=== PATIENT | male | born 1990 | race Caucasian/White ===

== ENCOUNTER 2023-08-20 16:58 | Inpatient (IN) | payer OTHER, SELFPAY ==
[2023-08-20] VITALS (10 sets, daily range): BP systolic 111–151; BP diastolic 67–94; BMI 27.7; BMI 26.9
[2023-08-20 12:47] LABS: Glucose - Point of Care 89 mg/dl (70-99)
--- NOTE | 2023-08-20 12:54 | ED.CVA ---
History of Present Illness
General
Chief Complaint: CVA/TIA Symptoms
Source: patient
Exam Limitations: none
Time Seen by Provider: 08/20/23 12:52
Onset of Stroke Symptoms
Onset of symptoms known: Yes
Date of onset of symptoms: 08/20/23
Time of onset of symptoms: 11:30
Travel History
Have you had any contact with someone who has COVID-19?: No
Do you have any symptoms of coronavirus? Fever > 100 degrees, chills, cough, shortness of breath, sore throat, loss of taste or smell, muscle aches, or headache?: No
History of Present Illness
History of Present Illness:
33-year-old otherwise healthy male presents from place of employment on his first day on the job with difficulty speaking. His coworker was having conversation with him at 1130 at this time, his speech started to slur. Patient states he has had
trouble getting words out since then. He denies associated headache chest pain or shortness of breath. No unilateral numbness or weakness. No recent fever. He does not take any medications regularly
Phy Exam
Physical Exam
Physical Exam:
General: Well-appearing male no acute respiratory distress
HEENT: Normocephalic atraumatic face is symmetric
Heart: Regular rate and rhythm no murmurs
Lungs: Clear to auscultation bilaterally no wheezing
Neurologic exam: Alert and oriented x 3 no facial asymmetry no drift. Finger-nose [id number] intact. Patient has difficulty getting words out and he occasionally slurred slow speech.
Scores
NIH Stroke Score
Level of Consciousness: 0 - Alert
LOC Questions: 0-Answers both correctly
LOC Commands: 0-Performs both correctly
Best Horizontal Gaze: 0-Normal
Visual Wesley: 0=Normal, no visual loss
Facial Palsy: 0=Normal, symmetrical
Motor - Right Arm: 0=No drift 10 seconds
Motor - Left Arm: 0=No drift 10 seconds
Motor - Right Le-No drift 5 seconds
Motor - Left Le-No drift 5 seconds
Limb Ataxia: 0-Absent
Sensation: 0-Normal
Best Language: 0-No aphasia
Dysarthria: 1-Mild slurring
Extinction and Inattention: 0-No abnormality
Total Score:: 1
Course
Orders/Labs/Results
Orders:
Orders
08/20/23 12:50
Electrocardiogram (*1) Urgent
Reason for Study: Other
Other Reason for Exam: Possible Stroke
Bedside Glucose- Treatment ONCE
Cardiac Monitoring- Treatment ONCE
EKG- Treatment ONCE
IV Insert/Care/Rem.- Treatment PRN
Urinalysis Reflex To Culture Urgent
Date Specimen was Collected: 08/20/23
Time Specimen was Collected: 12:50
Vital Signs As Directed
Frequency: Other
Weight As Directed
Frequency: Once
Comment: ZERO STRETCHER SCALE FOR ACCURATE WEIGHT
O2 Therapy [RESP] Urgent
Titrate/Wean O2 to maintain O2 sat greater than (%): 93
Special Instructions: MAINTAIN CONTINUOUS O2 SATS > OR = 93%
08/20/23 12:52
Complete Blood Count/With Diff Urgent
Comprehensive Metabolic Panel Urgent
PTT Urgent
Prothrombin Time Urgent
Troponin I Urgent
08/20/23 12:55
CT Head W/o Cont STROKE ALERT Stat
Comment:
Reason For Exam: expressive aphasia
08/20/23 12:56
CT Head/Neck Ang STROKE ALERT Urgent
Comment:
Reason For Exam: slurred speech
08/20/23 13:37
MRI Brain [MR Brain Without Contrast] Urgent
Comment:
Reason For Exam: slurred speech
Recent pill cam endoscopy?: No
08/20/23 15:22
Aspirin 325 mg PO NOW STA
Clopidogrel Bisulfate [Plavix] 300 mg PO NOW STA
NIH Stroke Scale As Directed
Directions: Per protocol
Neurological Checks As Directed
Frequency: Per unit guidelines
08/20/23 15:24
Occupational Therapy Consult [Ot Eval And Treat] Routine
Physical Therapy Consult [Pt Eval And Treat] Routine
Activity Level: Ambulate
Speech Therapy Eval & Treat Routine
08/20/23 15:25
Echo 2D MMode Color/Doppler Routine
Reason for Study: Stroke source, bubble study please young age stroke
Comment: Bubble study please
Echo 2D MMode Color/Doppler Routine
Reason for Study: Thrombotic source for stroke-like sxs
08/20/23 15:30
Folate IN AM
Vitamin B12 IN AM
08/21/23 06:00
MASTER, IgG Reflex to HEp-2 [S] IN AM
Antiphospholipid Antibody [Phospholipid Antibody Panel] IN AM
CRP [C-Reactive Protein] IN AM
Cardiovascular Evaluation IN AM
Erythrocyte Sed Rate IN AM
Glycohemoglobin (HgbA1c) IN AM
TSH Reflex To Free T4 IN AM
08/21/23 08:00
Aspirin Low Dose EC [Aspir Low (Enteric Coated)] 81 mg PO DAILY
Clopidogrel Bisulfate [Plavix] 75 mg PO DAILY
Abnormal Lab Results
08/20/23
12:52
Absolute Monos (auto) 0.7 H 10^3/uL
(0.1-0.6)
BUN 23 H mg/dl
(9-20)
Glucose 102 H mg/dl
(70-99)
Total Bilirubin 2.3 H mg/dl
(0.2-1.3)
Albumin 5.1 H g/dl
(3.5-5.0)
08/20/23 12:52
08/20/23 12:52
Vital Signs
Initial and Last Documented VS:
Initial Vital Signs
Temp Pulse Resp BP Pulse Ox
97.8 F 101 16 146/86 100
08/20/23 12:33 08/20/23 12:33 08/20/23 12:33 08/20/23 12:33 08/20/23 12:33
Last Documented Vital Signs
Temp Pulse Resp BP Pulse Ox
97.8 F 94 23 112/88 97
08/20/23 12:33 08/20/23 14:30 08/20/23 14:30 08/20/23 14:22 08/20/23 14:30
MDM/Problems Addressed
Differential Diagnosis Includes:
Abrupt onset of slurred speech. Differential could include CVA versus hypertensive encephalopathy versus hypoglycemia
Patient evaluated under stroke alert. Stroke alert was called through triage. Patient has slurred speech with an NIH of 1 but does involve his speech. Patient taken to CAT scan and neurology into see him in CAT scan room. Per neurology's
request, CTA of the head and neck were ordered as well
*Critical Care Note
Total Time (30-74mins, 75-104mins- exclusive of procedures): Not Applicable
Update Note
Update Note:
Patient evaluated immediately upon arrival to the room after stroke alert called through triage. Neurology into see patient as well. CT of head and CT angio of head and neck were ordered which were both negative. Will order MRI of brain per
neurology's request. EKG shows sinus tachycardia with rate of 103 no ischemic changes
MRI of the brain does demonstrate hyperacute 2.3 cm area of ischemic stroke in the left side. Consistent with the patient's symptoms. Neurology already aware of findings. Aspirin and Plavix were ordered. Will admit to hospital for further stroke
workup
ED Attending Note
-
Portions of this chart may have been created with voice recognition software.� Occasional wrong word or��sound alike� substitutions may have occurred due to the inherent limitations of voice recognition software.
Discharge Plan
Departure
Patient Disposition: Admit
Date of Disposition: 08/20/23
Time of Disposition: 15:39
Admit to: Telemetry
Presentation/result/management discussed w/ accepting MD/DO: Hospitalist
Discharge Problem:
Acute CVA (cerebrovascular accident)
Referrals:
NONE,* [Family Provider] -
Interventions
Interventions:
*Risk Screen - Suicide Last Done: 08/20/23 12:34
*General Assessment Last Done: 08/20/23 12:34
*Neglect/Abuse Screening Last Done: 08/20/23 12:34
ED- Pulmonary Assessment Last Done: 08/20/23 14:03
ED- Neurological Assessment Last Done: 08/20/23 12:47
ED- Cardiac Assessment Last Done: 08/20/23 14:03
ED Swallowing Screen Last Done: 08/20/23 13:00
[2023-08-20 13:01] LABS: % Basophils 0.7 % (0-2); % Eosinophils 0.7 % (0-6); % Immature Granulocytes 0.3 % (0-0.5); % Monocytes 8.2 % (1.7-9.3); % Neutrophils 65.1 % (42.2-75.2); Absolute Basophils 0.1 10^3/uL (0-0.2); Absolute Eosinophils 0.1 10^3/uL (0-0.7); Absolute Lymphocytes 2.2 10^3/uL (1.2-3.4); Absolute Monocytes 0.7 10^3/uL (0.1-0.6); Absolute Neutrophils 5.6 10^3/uL (1.4-6.5); Hematocrit 43.9 % (39.0-52.0); Hemoglobin 15.8 g/dL (13.0-18.0); Mean Corpuscular Hgb 30.9 pg (27.0-31.0); Mean Corpuscular Volume 85.7 fL (80.0-94.0); Mean Platelet Volume 9.6 fL (7.4-10.4); Nucleated Red Blood Cells % 0 % (-); Platelet Count 329 10^3/uL (130-400); Red Blood Cell Count 5.12 10^6/uL (4.70-6.10); Red Cell Dist. Width 11.7 % (11.5-14.5); White Blood Cell Count 8.6 10^3/uL (4.8-10.8)
--- NOTE | 2023-08-20 13:02 | CON.NEURO4 ---
Addendum entered and electronically signed by Praveen Montano MD 08/20/23 15:28:
Brain MRI without contrast reviewed there is an acute infarction in the left temporal lobe which does explain the patient's presenting symptoms of minor aphasia.
Will need admission and stroke workup
Recommendations
-Permissive hypertension goal less than 220/120 until 10 AM tomorrow
-Give aspirin 325 mg and Plavix 300 mg once now, continue on DAPT therapy thereafter
-Monitor on cardiac telemetry and check transthoracic echocardiogram with bubble given young age, strong consideration for JACQUELINE
-Check hemoglobin A1c and lipid panel, vitamin B12, folate and TSH
-Check ESR, CRP, MASTER, antiphospholipid antibody panel
-Speech physical and occupational therapy evaluations
-Neurologic checks NIH stroke scales
Original Note:
Consultation - Neurology 4
-
CONSULTING PHYSICIAN: Rigoberto Montano
REFERRING PHYSICIAN: ER
DICTATED BY: Rigoberto Montano
DATE/TIME OF REQUEST: 08/20/23
DATE/TIME OF CONSULTATION: 08/20/23
Reason for Consultation: Speech difficulty
History of Present Illness:
Patient is a right-handed 33-year-old male with a past medical history of hyperlipidemia presented to hospital because of sudden onset of speech abnormality starting at work around 11 AM today. Patient has been in his normal state of health
recently with no recent illnesses, denies some headaches but nothing that has been unusual or severe. No recent head or neck trauma. He does not take any chronic medications.
Patient was starting new job today and did feel somewhat anxious which he says he generally hides well, around 11 AM was noticed by himself as well as coworkers he had significant expressive speech difficulty that led him to come to ER. Patient
reports that the speech issues have improved some but are not normal currently. He reports that he did have speech impediment with some stuttering and did speech classes as a child in grade school age but this seemed to have been long ago resolved.
Patient had had elevated cholesterol levels around 1-1/2 years ago, his primary care physician had recommended strongly to him that he needed to start exercising and eating better and he did do this losing around 30 pounds and having significant
improvement in his cholesterol levels, had started a statin medication for a brief amount of time but has been able to come off of this with his lifestyle habit changes.
Past Medical History: Hyperlipidemia
Surgical History: None
Family History: Father had had a history of cancer of the brain, no history of early stroke or [place]
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
Allergies: No known drug allergies
Review of Symptoms:
Patient denies any fever, headache, chest pain, shortness of breath, GI or symptoms.
Physical Exam:
Well-appearing young middle-age man appears his stated age well-groomed well-nourished no signs of head or neck trauma, wrestler's ear moer on the right side, neck with no masses oropharynx is clear, eyes are clear, heart rate regular, breathing
unlabored abdomen soft nontender no lower extremity edema rash or joint deformity
Neurologic Examination:
Patient is awake and fully oriented conversational and answers all questions appropriately good insight and good historian, mildly anxious and pleasant. Patient has some occasional instances of disfluent speech with stuttering, he does not
demonstrate any difficulty in naming simple objects or repeating phrases, obeys complex and multistep commands. On cranial nerve assessment, pupils are 3 mm bilateral, round and reactive to light and accommodation. Visual allen are full.
Extraocular movements are intact. Facial sensations are intact and bilaterally symmetrical, there is no facial asymmetry. Hearing is intact bilaterally to normal conversation volume. Tongue palate and uvula are midline. Sternocleidomastoid
strengths are full bilaterally. Motor strengths are 5/5 bilateral upper and lower extremities on medical research Solomon scale. There is no drift or involuntary movement noted. Deep tendon reflexes are 2+ bilateral upper and lower extremities and
Babinski is absent bilaterally. Sensations of pain, touch, temperature and vibration are intact and bilaterally symmetrical. There was no extinction noted on double simultaneous stimulation. Coordination is intact by finger to nose bilaterally.
Walks independently with no difficulty, hops on one foot easily, Rhomberg negative.
Neuro Imaging:
CT head noncontrast with no acute abnormalities no masses or edema no acute infarct is seen no hemorrhages no mass effect or edema no hydrocephalus.
CTA of the head and neck with no dissection in the carotid vertebral circulations, no significant carotid stenosis, no intracranial occlusions or stenosis no vascular malformations are seen
Impressions
1. Suspect reemergence of previous stutter associated with stressors of new job. Small possibility of minor ischemic stroke to the left hemisphere that would require MRI of the brain to evaluate for.
2. History of hyperlipidemia which greatly improved with diet and exercise lifestyle modifications
3. Distant history of speech impediment and stuttering in his grade school childhood years
IV Tenecteplase/IAT candidacy: Patient within time window for TNK however patient described history of previous stuttering in his younger years and started new job today, his exam is more consistent with stuttering with nervousness and stress of
the new job, is felt unlikely this is an ischemic stroke but even if this were the case the deficit is mild enough that risks of TNK outweigh the benefits, no large vessel occlusion on CTA head and neck would not be candidate for IAT.
Recommendations:
1. Check MRI of the brain without contrast
2. If no findings of acute infarct then would be acceptable for discharge home with reassurance that symptoms are expected to improve quickly, consideration for speech therapy in outpatient setting
3. If MRI brain demonstrates stroke will need starting of antiplatelet therapy and thorough stroke workup
Discussed patient care with: Patient, ED
[2023-08-20 13:12] LABS: APTT 26.6 Sec (23.4-35.0); INR 0.99; PT 12.9 Sec (11.4-14.6)
[2023-08-20 13:17] LABS: ALT (SGPT) 24 U/L (0-50); AST (SGOT) 25 U/L (17-59); Albumin 5.1 g/dl (3.5-5.0); Alkaline Phosphatase 56 U/L (38-126); Blood Urea Nitrogen 23 mg/dl (9-20); Calcium 9.8 mg/dl (8.4-10.2); Carbon Dioxide 27 mmol/L (22-30); Chloride 99 mmol/L (98-107); Estimated Creatinine Clearance 95 ml/min; Glucose 102 mg/dl (70-99); Potassium 3.8 mmol/L (3.5-5.1); Sodium 140 mmol/L (135-145); Total Bilirubin 2.3 mg/dl (0.2-1.3); eGFR > 60.00
[2023-08-20 14:24] LABS: Troponin I < 0.012 ng/ml
[2023-08-20] MEDS: PLAVIX 300 MG PO (16:07)
[2023-08-20] MEDS: ASPIRIN 325 MG PO (16:07)
--- NOTE | 2023-08-20 16:28 | HPS.HSE ---
Family Physician
-
Family Physician: * NONE
Chief Complaint
-
Speech abnormality
History of Present Illness
Patient is 33 years old male with no significant medical history other than hypercholesterolemia who presents to the emergency room after acute episode of aphasia. History was taken from patient himself as well as from coworker who is at the
bedside. Starting first day with new job today patient was found to have difficulty of finding words along with anxiety all happened at around 11 AM this morning coworker describes significant expressive aphasia that led him to emergency room.
Patient denies any loss of consciousness, headache, denies any loss of vision, upper or lower extremity motor or sensory abnormalities. Patient mentioned mild speech impediment at the childhood which improved with age.
In addition patient with history of high cholesterol which treated with diet and exercise. Patient lost over 30 pounds over the last year and a half and with improved cholesterol discontinued statin medication. Patient denies any prior history of
CAD, CVA, seizures. He denies any history of hypercoagulable state and has negative relevant family history.
While in the emergency room patient was seen by neurology his physical exam including neurologic exam showed no focal findings.
Additional workup with CT scan of the head showed no acute abnormalities.
Following MRI of the brain showed right-sided small infarct in left temporal lobe.
At the time of my examination patient has no focal findings other than very mild right facial droop. He has normal speech.
Patient has been loaded with aspirin and Plavix and being admitted for further CVA evaluation.
Medical History
Past Medical History
Past Medical History: Reports Hypercholesterolemia; Denies Arrhythmia, CAD, Cancer or IDDM
Past Surgical History: Reports None
Social History
Tobacco: Non-smoker
Alcohol: None
Drug: None
Living: With Family
Employment: Employed
Family History
Family History: Not pertinent
Allergies / Home Medications
Allergies reflects when Allergies were last updated in [facility].
Home Medications with original date entered in [facility]
Allergy/Medication List:
Allergies
Allergy/AdvReac Type Severity Reaction Status Date / Time
No Known Allergies Allergy Verified 08/20/23 12:51
Home Medications
Protein Powder Supplement 1 dose PO .SEE BELOW 08/20/23
Review of Systems
-
A 12 point ROS was completed and negative except as noted: Yes
Cardiac: Reports See HPI
Neurological: Reports See HPI
Physical Exam
Vital Signs
Vital Signs
Temp Pulse Resp BP Pulse Ox
97.8 F 82 12 121/72 98
08/20/23 12:33 08/20/23 16:01 08/20/23 16:01 08/20/23 16:01 08/20/23 16:01
Physical Exam
General: Well Developed, Well Nourished and No Apparent Distress
HEENT: NormoCephalic, Moist mucous membranes and Atraumatic
Respiratory: Clear
Cardiac: S1/S2 and Regular Rhythm; No Murmur or Rub
GI: Soft, Non Tender, Non Distended and Normal Bowel Sounds; No Organomegaly
Rectal: Deferred by Provider
Musculoskeletal: No Clubbing, No Cyanosis and No Edema
Skin: No Rash
Neuro: Awake, Alert, Oriented, AO x 3, No Motor Deficits, Nonfocal/grossly intact, Cranial Nerves Intact and Facial Droop (Very mild right)
Psych: Calm
Laboratory Results
-
08/20/23 12:52
08/20/23 12:52
Laboratory Results
PT 12.9 Sec (11.4-14.6) 08/20/23 12:52
INR 0.99 08/20/23 12:52
APTT 26.6 Sec (23.4-35.0) 08/20/23 12:52
Total Bilirubin 2.3 mg/dl (0.2-1.3) H 08/20/23 12:52
AST 25 U/L (17-59) 08/20/23 12:52
ALT 24 U/L (0-50) 08/20/23 12:52
Alkaline Phosphatase 56 U/L (38-126) 08/20/23 12:52
Troponin I < 0.012 ng/ml 08/20/23 12:52
Data Reviewed
-
CT Scan: Report Reviewed by me
MRI: Report Reviewed by me
Lab Data: Labs Reviewed by me
Impression/Plan
-
IMPRESSION:
Acute left temporal lobe CVA
� Presentation with expressive aphasia shortly resolved.
Dyslipidemia discontinued statins after weight loss.
PLAN:
Presentation with expressive aphasia, self-limited episode
Acute left temporal lobe CVA.
History of dyslipidemia currently not on statins, had been discontinued after weight loss.
CT scan of the head with no acute abnormalities
CTA head and neck with no vascular abnormalities
MRI of the brain without contrast showed acute infarction in the left temporal lobe which consistent with patient presentation.
Current neurologic status is stable with resolution of the symptoms except very mild right facial droop (unclear if chronic)
Patient was not a candidate for lytic treatment given rapid improvement of neurologic symptoms and risk of complications overweight benefits.
Normotensive.
Admit for further close monitoring and CVA evaluation.
Loaded with full dose of aspirin 325 mg and Plavix 300 mg while in the emergency room.
Continue close neurologic monitoring with serial neurochecks per
Check hemoglobin A1c, lipid profile, B12 and TSH level.
Check inflammatory markers including ESR, CRP.
Serologic workup with MASTER and antiphospholipid antibody.
Speech and swallow evaluation.
Echocardiogram with bubble study
Monitor blood pressure trend with goal of permissive hypertension over the next 24 hours.
[2023-08-20 18:23] LABS: Urine Albumin Negative (Neg - Trace); Urine Bilirubin Negative (Negative); Urine Character Clear (Clear); Urine Color Yellow; Urine Glucose Negative (Negative); Urine Ketone Negative (Negative); Urine Leukocyte Negative (Negative); Urine Nitrite Negative (Negative); Urine Occult Blood Negative (Negative); Urine Urobilinogen Negative (Neg - 1+); Urine pH 6.5 (5.0-9.0)
[2023-08-20 18:34] LABS: Amphetamines Negative (Negative); Barbiturates Negative (Negative); Benzodiazepines Negative (Negative); Buprenorphine Negative (Negative); Cocaine Negative (Negative); Marijuana Negative (Negative); Methadone Negative (Negative); Methamphetamines Negative (Negative); Opiates Negative (Negative); Phencyclidine Negative (Negative); Tricyclic Antidepressants Negative (Negative)
[2023-08-20 19:02] LABS: Folate 9.3 ng/ml (2.76-20); Vitamin B12 233 pg/ml (239-931)
[2023-08-20] MEDS: LOVENOX 40 MG SC (19:19)
[2023-08-21] VITALS (7 sets, daily range): BP systolic 110–133; BP diastolic 60–78; PULSE 76; O2SAT 98–99
--- NOTE | 2023-08-21 01:29 | PTCARENOTE ---
Pt arrived to unit from ED via stretcher. Pt. able to safely ambulate into room 338-2 on . NIH 0. Pt. AAOx3 and able to make needs known. Tele monitor placed per orders. Oriented to unit. Call [facility] within reach. Plan of care on going.
[2023-08-21 06:04] LABS: HDL Cholesterol 40 mg/dl; LDL Cholesterol, Calculated 107 mg/dl; Total Cholesterol 160 mg/dl (50-199); Triglyceride 65 mg/dl (10-149); Very Low Density Lipoprotein 13 mg/dl (0-30)
[2023-08-21 06:05] LABS: C-Reactive Protein < 5.00 mg/L (0.0-10.00)
[2023-08-21 06:35] LABS: TSH Reflex To Free T4 2.14 uIU/ml (0.47-4.68)
[2023-08-21 07:16] LABS: Erythrocyte Sed Rate 2 mm/hour (0-20)
[2023-08-21] MEDS: PLAVIX PO (07:51)
[2023-08-21] MEDS: ASPIR LOW (ENTERIC COATED) 81 MG PO (07:51)
[2023-08-21] MEDS: PLAVIX 75 MG PO (08:36)
[2023-08-21 08:56] LABS: Glycohemoglobin (HgbA1c) 5.2 % (4.0-5.6)
[2023-08-21] MEDS: VITAMIN B-12 1000 MCG PO (10:12)
[2023-08-21] MEDS: OMNIPAQUE 50 ML PO (11:40)
--- NOTE | 2023-08-21 12:45 | W.PN.HOSP.TC ---
Addendum entered and electronically signed by Avery Snowden MD 08/21/23 16:45:
Patient seen and examined
Discussed with neurology
Discussed with resident
Impression/plan:
Acute left temporal CVA.
Neurologically stable with no sequela since admission
Ongoing workup so far unrevealing including CT scan of the chest abdomen pelvis negative for occult malignancy.
Lower extremity Doppler negative for DVT.
2D echocardiogram with bubble study and JACQUELINE has been scheduled.
Cardiology consultation for outpatient cardiac monitoring.
Continue DAPT with aspirin and Plavix
Initiated on high-dose of statin.
Original Note:
Today's Communication/Plan
-
Hypercoagulable workup as outpatient.
Continue Statin for secondary prevention
Echo pending
JACQUELINE
Assessment / Plan
Assessment / Plan
IMPRESSION:
Acute left temporal lobe CVA
� Presentation with expressive aphasia shortly resolved.
Dyslipidemia discontinued statins after weight loss.
PLAN:
Presentation with expressive aphasia, self-limited episode
Acute left temporal lobe CVA.
History of dyslipidemia currently not on statins, had been discontinued after weight loss.
CT scan of the head with no acute abnormalities
CTA head and neck with no vascular abnormalities
MRI of the brain without contrast showed acute infarction in the left temporal lobe which consistent with patient presentation.
Current neurologic status is stable with resolution of the symptoms except very mild right facial droop (unclear if chronic)
Patient was not a candidate for lytic treatment given rapid improvement of neurologic symptoms and risk of complications overweight benefits.
Normotensive.
Admit for further close monitoring and CVA evaluation.
Loaded with full dose of aspirin 325 mg and Plavix 300 mg while in the emergency room.
Continue close neurologic monitoring with serial neurochecks per
Check hemoglobin A1c, lipid profile, B12 and TSH level.
Check inflammatory markers including ESR, CRP.
Serologic workup with MASTER and antiphospholipid antibody.
Speech and swallow evaluation.
Echocardiogram with bubble study
Monitor blood pressure trend with goal of permissive hypertension over the next 24 hours.
Anticipated Discharge: 24 - 48 hours
Subjective/Interval History
-
Date of Service: August 21, 2023
Objective Data
-
Vital Signs:
Vital Signs
Temp Pulse Resp BP Pulse Ox
98.6 F 70 17 117/68 98
08/21/23 11:16 08/21/23 11:16 08/21/23 11:16 08/21/23 11:16 08/21/23 11:16
I&O
08/20/23 08/21/23 08/22/23
06:59 06:59 06:59
Intake Total 480 / 480
Balance 480 / 480
Review of Systems
-
History Source: Patient
All other systems: Reviewed and negative
Physical Exam
-
General: Well Developed and No Apparent Distress
HEENT: Normocephalic, Atraumatic and Moist Mucous Membranes
Respiratory: Clear to Auscultation
Cardiac: Regular Rhythm and S1/S2; Negative Murmur, Rub or Gallop
GI: Soft, Nontender, Nondistended and Normal Bowel Sounds; Negative Organomegaly
Rectal: Deferred by Provider
Musculoskeletal: No Clubbing, No Cyanosis and No Edema
Skin: Negative Rash
Neuro: Nonfocal/Grossly Intact
--- NOTE | 2023-08-21 13:47 | PTOTSP ---
SPEECH THERAPY SPEECH/LANGUAGE/COGNITIVE COMMUNICATION EVALUATION:
Patient present with speech, language, and cognitive communication skills WFL. Patient appears to be back at baseline level of functioning. Patient endorses no residual language/speech impairments at this time; reported aphasia resolved 3 hours
after onset. Speech therapy is not indicated at this time. ST to sign off.
RECOMMEND:
1) Speech therapy is not indicated at this time. ST to sign off.
--- NOTE | 2023-08-21 14:48 | CON.CAR ---
Addendum entered and electronically signed by Robert Story DO 08/21/23 16:37:
I saw and examined the patient.
The Operations Recruiter's note was reviewed and I agree with the note.
Comment:
Plan:
Check echo
Check JACQUELINE AM
Hypercoag work up in progress
Check lipids and would tx cardiovascular and cerebrovascular risk factors.
4 week monitor and if that is negative would recommend implantable loop recorder, pt is considering.
Original Note:
Consultation
Consultation Request
Date/Time Consultation Performed: 08/21/23
Requesting Provider: Dr. Snowden
Performing Provider: Lanny Lorenzo PA-C for Dr. Story
Reason for Consultation: CVA
Medical History
-
Chief Complaint: speech difficulty
History of Present Illness:
Patient is a 33 year old male with PMH of HLD who presented to for evaluation of speech difficulty. He had started a new job and around 11AM yesterday was noted by coworkers and by patient to have difficulty with speech. Head CT was without acute
abnormality however brain MRI showed L frontal CVA. Cardiology consulted for evaluation for JACQUELINE and cardiac monitoring in setting of CVA of unclear etiology. No recent complaints of palpitations, lightheadedness. No recent illnesses or trauma. No
medication changes. No history of clotting issues. Patient does use protein powder. Bloodwork completed through PCP was noted to have elevated cholesterol levels and patient has lost approximately 40 pounds in the last year through lifestyle
modifications per . Reportedly speech back to baseline.
PMH:
HLD, improved with lifestyle modification
Past Medical History
Past Medical History: Other (in HPI)
Social History
Tobacco: Non-Smoker
Alcohol: Occasional
Personal:
Living: With Family
Employment: Employed
Family History
Family History: Cancer
Allergies / Home Medications
Allergy/AdvReac Type Severity Reaction Status Date / Time
No Known Allergies Allergy Verified 08/20/23 12:51
Medication Instructions Recorded Confirmed Type
Protein Powder Supplement 1 dose PO .SEE BELOW 08/20/23 08/20/23 History
Review of Systems
-
History Source: Family
All other systems: Negative unless noted
Physical Exam
Vital Signs
Temp Pulse Resp BP Pulse Ox
98.6 F 70 17 117/68 98
08/21/23 11:16 08/21/23 11:16 08/21/23 11:16 08/21/23 11:16 08/21/23 11:16
Lab Results
08/20/23 12:52
08/20/23 12:52
Troponin I < 0.012 ng/ml 08/20/23 12:52
Impression / Plan
-
Primary Radio Television Technical Director: none prior to admission
Assessment:
Presentation with speech difficulty, resolved
Acute L frontal CVA by brain MRI
HLD, improved with lifestyle modification
Vitamin B12 deficiency
ECHO 08/21/23: pending
Plan:
-work up/treatment of L CVA per neurology
-currently on DAPT with asa, plavix
-LDL 107. high intensity statin therapy
-echo pending
-JACQUELINE procedure discussed with at bedside. will make NPO for AM
-in SR upon review of tele. will plan for 4 week monitor to be placed prior to DC. pending results, would consider for linq implant
-will arrange OP cardiac follow up
Data Reviewed
-
EKG: Tracing Personally Visualized and interpreted
CT Scan: Report Reviewed by me
MRI: Report Reviewed by me
Labs: Labs Reviewed by me
Old Records: Reviewed
--- NOTE | 2023-08-21 16:03 | W.PN.NEURO.1 ---
Today's Communication / Plan
-
As outpatient check hypercoagulability labs
As inpatient check echocardiogram, JACQUELINE
Would ask for cardiology consultation for consideration of implantable air sampling and monitoring to better discern if dysrhythmia was the cause for symptomatology
Initiate atorvastatin due to minimally elevated LDL
Provide medical educational materials
Goal of normotension
Goal of normoglycemia
Continue dual antiplatelet therapy with eventual goal of aspirin alone after 21 days of therapy
Neuro Assessment/Plan
Assessment
Acute onset of aphasia in the form of stuttering, completely resolved
With MRI of brain findings suggestive of left temporal horn acute ischemic stroke
Plan
As outpatient check hypercoagulability labs
As inpatient check echocardiogram, JACQUELINE
Would ask for cardiology consultation for consideration of implantable air sampling and monitoring to better discern if dysrhythmia was the cause for symptomatology
Initiate atorvastatin due to minimally elevated LDL
Provide medical educational materials
Goal of normotension
Goal of normoglycemia
Continue dual antiplatelet therapy with eventual goal of aspirin alone after 21 days of therapy
We will continue to follow
Subjective/Objective
Subjective Data
Date of Service: August 21, 2023
Resolution of symptoms since 1500 yesterday
Objective Data
Vital Signs
Temp Pulse Resp BP Pulse Ox
36.7 C 73 18 120/70 97
08/21/23 15:00 08/21/23 15:00 08/21/23 15:00 08/21/23 15:00 08/21/23 15:00
Lab Results
08/20/23 12:52
08/20/23 12:52
PT 12.9 Sec (11.4-14.6) 08/20/23 12:52
INR 0.99 08/20/23 12:52
APTT 26.6 Sec (23.4-35.0) 08/20/23 12:52
Sodium 140 mmol/L (135-145) 08/20/23 12:52
Potassium 3.8 mmol/L (3.5-5.1) 08/20/23 12:52
BUN 23 mg/dl (9-20) H 08/20/23 12:52
Glucose 102 mg/dl (70-99) H 08/20/23 12:52
Calcium 9.8 mg/dl (8.4-10.2) 08/20/23 12:52
LDL Cholesterol, Calc 107 mg/dl 08/21/23 05:14
Vitamin B12 233 pg/ml (239-931) L 08/20/23 15:30
Ur Buprenorphine Negative (Negative) 08/20/23 18:14
Patient Allergies
No Known Allergies Allergy (Verified 08/20/23 12:51)
Review of Systems
-
History Source: Patient
All other systems: Reviewed and negative
Physical Exam
-
General: No Apparent Distress and Appears Stated Age
Eyes: Round OU, [place]den Conjunctivae and No Ptosis
HEENT: Anicteric and Moist Mucous Membranes
Neck: Full Range of Motion
Respiratory: No Dyspnea
Cardiac: No JVD
GI: Soft
Skin: Unremarkable
Extremities: No Clubbing, No Cyanosis and No Edema
Psych: Intact Judgement/Insight
Extended Neurological Exam
Mood & Affect: Mood Unremarkable and Affect Unremarkable
Attention Span & Concentration: Awake, Alert, Interactive and No Difficulty with 2 Step Request
Memory: Unremarkable
Tremor: Hand Tremor Absent and Head Tremor Absent
Involuntary Movement: None
Speech: Quality Unremarkable and Quantity Unremarkable
Cranial Nerve II: Left Eye: Pupillary Size Unremarkable and Visual Wesley Grossly Intact
Cranial Nerve II: Right Eye: Pupillary Size Unremarkable and Visual Wesley Grossly Intact
Cranial Nerves III, IV, : Extraocular Movement: Grossly Intact
Cranial Nerve VII: Facial Symmetry: Normal Facial Symmetry
Cranial Nerve VIII: Hearing: Unremarkable Hearing to Normal Conversational Volume
Cranial Nerve XI: Shoulder Shrug: Unremarkable
Muscle Bulk & Tone: Bulk Unremarkable and Tone Unremarkable
Touch Sensation: Unremarkable
Coordination: Reaches for Objects without Difficulty
Gait & Station: Up from Seated Without Problem
Data Reviewed
-
Labs: Report Reviewed
Reviewed with: Physician, Nurse Practioner, Patient and Family
Old Records: Summarized
Past History
Past History
ED Past Medical History: CVA (left temporal stroke )
ED Past Surgical History: None
Medications
-
Medications:
Generic Name Dose Route Start Last Admin
Trade Name Freq PRN Reason Stop Dose Admin
Aspirin 81 mg 08/21/23 08:00 08/21/23 07:51
Aspirin 81 Mg (Enteric Coated) Tablet PO 09/18/23 07:59 81 mg
DAILY CEE Administration
Atorvastatin Calcium 80 mg 08/21/23 18:00
Atorvastatin (Lipitor) 80 Mg Tablet PO 09/18/23 17:59
QPM CEE
Clopidogrel Bisulfate 75 mg 08/21/23 08:00 08/21/23 08:36
Clopidogrel 75 Mg Tablet PO 09/10/23 08:01 75 mg
DAILY CEE Administration
Cyanocobalamin 1,000 mcg 08/21/23 09:00 08/21/23 10:12
Cyanocobalamin 1,000 Mcg Tablet PO 09/18/23 08:59 1,000 mcg
DAILY CEE Administration
Enoxaparin Sodium 40 mg 08/20/23 18:03 08/20/23 19:19
Enoxaparin Sodium 40 Mg/0.4 Ml Syringe SC 09/17/23 18:02 40 mg
QPM CEE Administration
Sodium Chloride 0 flush 08/20/23 19:00
Sodium Chloride 0.9% (Flush) Syringe IV 09/17/23 18:59
PER PROTOCOL CEE
[2023-08-21] MEDS: LIPITOR 80 MG PO (17:21)
[2023-08-21] MEDS: LOVENOX 40 MG SC (17:21)
--- NOTE | 2023-08-21 17:22 | CM ---
Alert awake oriented patient who lives with his Shahnaz who lives in a 2 story home with 4 step to enter and 12 steps to bed and bathroom . He is independent in driving and in all activities of daily living.He was offered VN he declined
need.Spoke with also.
No VN/SNF history
Ph[facility]acy [facility]
PCP DR Norma Newsome
PLAN Home Declined VN
[2023-08-22 03:45] VITALS: BP 116/65
[2023-08-22 07:00] VITALS: BP 126/71
[2023-08-22] MEDS: PLAVIX 75 MG PO (10:57)
[2023-08-22] MEDS: ASPIR LOW (ENTERIC COATED) 81 MG PO (10:57)
[2023-08-22] MEDS: VITAMIN B-12 1000 MCG PO (10:57)
[2023-08-22 11:48] VITALS: BP 107/70
--- NOTE | 2023-08-22 12:41 | W.DS.TRANS ---
DC Summary - [employer]
-
Discharge Instructions:
Discharge Diagnosis/Procedures CVA
Diet Low Cholesterol
Others Tests 30 day front desk monitor
Instructions:
Stand-Alone Forms:
Changes to Home Medications: Yes
Discharge Medications:
DC Medications w/original date entered in [facility]
aspirin 81 mg tablet,delayed release 81 mg PO DAILY #30 tabs 08/22/23
atorvastatin 80 mg tablet 80 mg PO QPM #30 tabs 08/22/23
clopidogrel 75 mg tablet 75 mg PO DAILY #21 tabs 08/22/23
omeprazole 20 mg capsule,delayed release 20 mg PO DAILY #30 caps 08/22/23
Home Medication Changes
all of above
Pending Results: Yes
Additional Pending Results:
antiphospholipid pannel
--- NOTE | 2023-08-22 12:57 | W.PN.CARDCBS ---
Addendum entered and electronically signed by Melo Casper MD 08/22/23 16:33:
I did not see or examine the patient as he was out of the room and then discharged prior to my evaluation
The Redeye Gunner's note was reviewed and I agree with the note.
Comment: Briefly, 33-year-old man presenting with speech difficulty found to have acute left frontal CVA
He was monitored on telemetry, did have short episode of atrial tachycardia earlier this morning around 6 AM but no atrial fibrillation or atrial flutter
Plan for long-term outpatient ekg monitor
At follow-up we can discuss possible Linq implant
Transthoracic echocardiogram from 08/21/23 directly reviewed, there appears to be significant right to left shunt with bubble study
However, JACQUELINE today which was directly reviewed does not show PFO/ASD and no evidence of right to left shunt by color flow or agitated saline contrast injection
Would consider cross-sectional imaging such as cardiac MRI to better evaluate the source of shunting seen on transthoracic echocardiogram
Agree with current medical therapy: aspirin/Plavix and high intensity statin
Outpatient cardiology follow-up arranged
Original Note:
Today's Communication / Plan
-
for 30 day ekg monitor
JACQUELINE without evidence of shunt
asa, plavix, statin
OP cardiac follow up arranged
Impression / Plan
-
Primary Heatset Winder Operator: none prior to admission
Assessment:
Presentation with speech difficulty, resolved
Acute L frontal CVA by brain MRI
HLD, improved with lifestyle modification
Vitamin B12 deficiency
ECHO 08/21/23: EF 55 to 60%, PFO noted with right to left flow on bubble study at rest and with Valsalva
JACQUELINE 08/22/2023: EF 55 to 60%, no significant valvular disease, no cardiac source of embolus, hypermobile interatrial septum with no evidence of shunt by Doppler or bubble study
Plan:
-work up/treatment of L CVA per neurology
-in SR without clear afib on review of tele. with possible brief episode of atach vs sinus arrhythmia. for 30 day external ekg monitor to be placed prior to DC
-for now, continue DAPT with asa, plavix
-continue high intensity statin therapy
-echo with preserved EF and PFO with R to L shunt. JACQUELINE 08/21 without evidence of shunt
-OP cardiac follow up arranged
-d/w hospitalist, neurologist
Progress Note - Heatset Winder Operator
Subjective
Date of Service: August 22, 2023
no issues overnight noted. s/p JACQUELINE
Objective
Labs:
08/20/23 12:52
08/20/23 12:52
Labs
Hgb 15.8 g/dL (13.0-18.0) 08/20/23 12:52
Hct 43.9 % (39.0-52.0) 08/20/23 12:52
Plt Count 329 10^3/uL (130-400) 08/20/23 12:52
PT 12.9 Sec (11.4-14.6) 08/20/23 12:52
INR 0.99 08/20/23 12:52
APTT 26.6 Sec (23.4-35.0) 08/20/23 12:52
Sodium 140 mmol/L (135-145) 08/20/23 12:52
Potassium 3.8 mmol/L (3.5-5.1) 08/20/23 12:52
BUN 23 mg/dl (9-20) H 08/20/23 12:52
Creatinine 1.0 mg/dL (0.7-1.3) 08/20/23 12:52
Glucose 102 mg/dl (70-99) H 08/20/23 12:52
Troponins
08/20/23
12:52
Troponin I < 0.012
Vital Signs and I&O:
Vital Signs
Temp Pulse Resp BP Pulse Ox
97.5 F 64 18 107/70 97
08/22/23 11:48 08/22/23 11:48 08/22/23 11:48 08/22/23 11:48 08/22/23 11:48
Vital Signs
Temp Pulse Resp BP Pulse Ox
97.5 F 64 18 107/70 97
08/22/23 11:48 08/22/23 11:48 08/22/23 11:48 08/22/23 11:48 08/22/23 11:48
Intake & Output
08/20/23 08/21/23 08/22/23 08/23/23
07:59 07:59 07:59 07:59
Intake Total 480 / 480 1280 / 1280
Balance 480 / 480 1280 / 1280
--- NOTE | 2023-08-22 14:40 | CM ---
MD entered order for discharge .
Pt s will drive him home.
Offered VN was declined.
PLAN Home no needs
--- NOTE | 2023-08-22 15:35 | W.DCSUMMARY ---
Documented by User: Ольга Bonilla MD, Resident 08/22/23 16:17
Discharge Summary
Discharge Data
Date of Admission: 08/20/23
Date of Discharge: 08/22/23
-
Pending Results: Yes
Additional Pending Results:
antiphospholipid panel
Hospital Course
DISCHARGE DIAGNOSIS:
1. CVA
2. Vitamin B12 deficiency
BRIEF HOSPITAL COURSE: This is a 33 year-old patient with past medical history of Hyperlipidemia who presented to ED for evaluation of speech difficulty. Patient was noted to have difficulty finding words along with anxiety during his first shift
at his new job. His coworker reports patient was experiencing significant expressive aphasia that led him to the emergency room. Patient denies any loss of consciousness, headache, denies any loss of vision, upper or lower extremity motor or sensory
abnormalities.� Patient mentioned mild speech impediment at the childhood which improved with age. On presentation to the ED, he was neurologically stable with resolution of symptoms except very mild right facial droop. Examination with CT scan of
the head with no acute abnormalities. Examination with CTA head and neck with no vascular abnormalities. Examination with MRI of the brain without contrast showed acute infarction in the left temporal lobe which was consistent with the patient's
presentation. Patient was not a candidate for lytic treatment given rapid improvement of neurologic symptoms and risk of complications overweigh benefits. Patient was started on dual antiplatelet therapy. Work up for CVA done including CT scan of
the chest abdomen pelvis negative for occult malignancy, Lower extremity Doppler negative for DVT. 2D Echocardiogram with preserved EF and PFO with Right to Left shunt. Follow up JACQUELINE without evidence of shunt. LDL minimally elevated (107),
initiated on high statin therapy. Blood pressure normal, Hemoglobin A1C 5.2. Hypercoagulability workup including Antiphospholipid, MASTER pending at the time of discharge. Throughout the course of his hospital stay, he was neurologically stable with no
sequela since admission. Prior to discharge, patient given a 30 day external athletic monitor, with outpatient cardiology follow up arranged. Patient referred to [facility] for Hypercoagulable workup. Patient will be discharged with continuation of
Dual antiplatelet therapy, with eventual goal of aspirin alone after 21 days of therapy. Patient will also be continued on Atorvastatin 80mg.
On the day of discharge, Temp: 97.5, BP: 107/70, Pulse: 64, O2 Sat 97% on room air
Physical examination: Patient is awake, alert, oriented x3. Lungs are clear to auscultation. Cardiac:presence of regular rhythm, S1/S2 present. Abdomen is soft, non tender, non distended. Extremities show no peripheral edema
Discharge Plan
-
Patient Disposition: Home (Routine Discharge)
Discharge Diagnosis/Procedures: CVA
Condition: Good
Diet: Low Cholesterol
Others Tests: 30 day athletic monitor
Referrals:
Renee Bloom PA-C [Specified Professional Personl] - 09/26/23 3:40 pm (You have a cardiology follow-up appointment at the [facility] [place] office. Please call with questions)
Marco Lugo MD [Active] - in two to four weeks
NONE,* [Family Provider] -
Prescriptions:
New
atorvastatin 80 mg Tablet
80 mg PO QPM Qty: 30 0RF
clopidogrel 75 mg Tablet
75 mg PO DAILY Qty: 21 0RF
aspirin 81 mg Tablet,Delayed Release (Dr/Ec)
81 mg PO DAILY Qty: 30 0RF
omeprazole 20 mg capsule,delayed release(DR/EC)
20 mg PO DAILY Qty: 30 0RF
Discontinued
Protein Powder Supplement
1 dose PO .SEE BELOW
Patient Comments:
08/20/2023, per pt., they take this supplement after workouts in the morning.
Discharge Orders:
Discharge Patient (As Directed); Ordered 08/22/23
Ordered By: Avery Snowden
Discharge Date and Time
Discharge Date/Time: 08/22/23 15:08

Documented by User: Avery Snowden MD 08/22/23 17:03
Discharge Summary
Discharge Data
Date of Admission: 08/20/23
Date of Discharge: 08/22/23
Discharge Plan
-
Patient Disposition: Home (Routine Discharge)
Discharge Diagnosis/Procedures: CVA
Condition: Good
Diet: Low Cholesterol
Others Tests: 30 day athletic monitor
Referrals:
Renee Bloom PA-C [Specified Professional Personl] - 09/26/23 3:40 pm (You have a cardiology follow-up appointment at the [facility] [place] office. Please call with questions)
Marco Lugo MD [Active] - in two to four weeks
NONE,* [Family Provider] -
Prescriptions:
New
atorvastatin 80 mg Tablet
80 mg PO QPM Qty: 30 0RF
clopidogrel 75 mg Tablet
75 mg PO DAILY Qty: 21 0RF
aspirin 81 mg Tablet,Delayed Release (Dr/Ec)
81 mg PO DAILY Qty: 30 0RF
omeprazole 20 mg capsule,delayed release(DR/EC)
20 mg PO DAILY Qty: 30 0RF
Discontinued
Protein Powder Supplement
1 dose PO .SEE BELOW
Patient Comments:
08/20/2023, per pt., they take this supplement after workouts in the morning.
Discharge Orders:
Discharge Patient (As Directed); Ordered 08/22/23
Ordered By: Avery Snowden
Discharge Date and Time
Discharge Date/Time: 08/22/23 15:08
--- NOTE | 2023-08-22 17:04 | W.PN.UPDATE ---
Update Note
Progress Note Update
Patient seen and examined
Discussed with neurology, resident, cardiology
33 years old male with left temporal CVA.
Stable neurologic status.
Was not a candidate for lytic treatment on admission given rapid improvement and low NIH scale
No prior history of CAD/CVA or treatments, negative past medical history for hypercoagulable state
Extensive workup while in the hospital including CTA with no vascular occlusion.
Normal hemoglobin A1c.
LDL at 100s.
2D echocardiogram with preserved biventricular function and no valvular abnormalities. Concern for PF4 not confirmed on today's JACQUELINE.
CT scan of the chest abdomen and pelvis with no evidence of abnormalities including occult malignancy.
Lower extremity Doppler negative for DVT.
Antiphospholipid panel pending.
Initiated on dual antiplatelet therapy with aspirin and Plavix and high-dose of statin.
Currently no indication for anticoagulation.
Outpatient cardiac monitoring will be provided prior to discharge.
Patient needs to follow-up with neurology, cardiology, hematology for further and complete evaluation for possible hypercoagulable state.
[2023-08-23 07:27] LABS: ANA, IgG Reflex to HEp-2 None Detected (None Detected)
[2023-08-23 18:22] LABS: Beta-2-Glycoprotein I Ab. IgG <10 SGU (<=20); Beta-2-Glycoprotein I Ab. IgM <10 SMU (<=20)
[2023-08-23 18:31] LABS: Cardiolipin IgA Antibody <10 APL (<=11); Cardiolipin IgM Antibody <10 MPL (<=12); Cardiolipin Igg Antibody <10 GPL (<=14)
[2023-08-24 01:49] LABS: Beta-2-Glycoprotein I Ab. IgA <10 SAU (<=20)
[2023-08-25 02:16] LABS: Phosphatidylserine Ab, IgA 0 APS (0-19); Phosphatidylserine Ab, IgG 1 GPS (0-15); Phosphatidylserine Ab, IgM 2 MPS (0-21)
== END 2023-08-22 15:08 | disposition home or self-care (01) | DRG 66 ==
LOC: 3 WEST ACU 16:58
PROVIDERS: Psychiatry & Neurology Neurology; ADMITTING PHYSICIAN Internal Medicine; CONSULT PHYSICIAN Nuclear Medicine Nuclear Cardiology; EMERGENCY PHYSICIAN Emergency Medicine; OTHER PHYSICIAN Student in an Organized Health Care Education/Training Program
DX: I63.9 Cerebral infarction, unspecified (principal); E53.8 Deficiency of other specified B group vitamins; Z79.02 Long term (current) use of antithrombotics/antiplatelets
CPT/HCPCS: 70450; 70496; 70498; 70551; 71260; 74177; 80053; 80061; 80306; 81003; 82607; 82746; 82962; 83036; 84443; 84484; 85025; 85610; 85652; 85730; 86038; 86140; 86146; 86147; 86148; 92523; 93005; 93306; 93312; 93320; 93325; 93970; 97161; 97165; 99285; Q9967